=== PATIENT | male | born 1990 | race Caucasian/White ===

== ENCOUNTER 2021-10-15 18:01 | Emergency (ER) | payer OTHER ==
[~2021-10-15] VITALS: Ht 185.4 cm; Wt 100.0 kg
[2021-10-15 18:04] VITALS: BP 148/88
== END 2021-10-15 18:39 ==
LOC: ER 18:01
DX: Z02.89 Encounter for other administrative examinations (principal); Z91.81 History of falling; R03.0 Elevated blood-pressure reading, without diagnosis of hypertension
CPT/HCPCS: 99283